=== PATIENT | female | born 1960 | race Caucasian/White ===

== ENCOUNTER 2016-06-02 17:30 | Emergency (ER) | payer MEDICARE ==
[~2016-06-02 17:30] MED LIST: KEPPRA500 MG PO
[2016-09-21] MEDS ORDERED: VIMPAT150 MG PO (13:53)
[2016-09-22] MEDS ORDERED: KEPPRA500 MG PO (11:04)
== END 2016-06-02 20:30 | disposition home or self-care (01) ==
LOC: ER1 17:30
DX: G40.802 Other epilepsy, not intractable, without status epilepticus (principal); E11.9 Type 2 diabetes mellitus without complications; C95.90 Leukemia, unspecified not having achieved remission; Z88.5 Allergy status to narcotic agent; Z79.899 Other long term (current) drug therapy
CPT/HCPCS: 36415; 70450; 99285

== ENCOUNTER 2016-08-13 18:40 | Emergency (ER) | payer MEDICARE ==
[2016-08-13 20:38] LABS: HEMOGLOBIN 11.9 gm/dl (12.3-15.3); RED BLOOD COUNT 3.85 M/UL (4.00-5.10); WHITE BLOOD COUNT 5.1 K/UL (4.5-11.0)
[2016-08-13 20:57] LABS: BUN/CREATININE RATIO 15 (0-10)
[2016-09-21] MEDS ORDERED: VIMPAT150 MG PO (13:53)
[2016-09-22] MEDS ORDERED: KEPPRA500 MG PO (11:04)
== END 2016-08-14 02:07 | disposition home or self-care (01) ==
LOC: ER1 18:40
PROVIDERS: Emergency Medicine
DX: R56.9 Unspecified convulsions (principal); E87.1 Hypo-osmolality and hyponatremia; C95.90 Leukemia, unspecified not having achieved remission; Z88.5 Allergy status to narcotic agent
CPT/HCPCS: 36415; 70450; 71010; 80053; 81001; 85025; 99285